=== PATIENT | female | born 1975 | race Caucasian/White ===

== ENCOUNTER → 2021-03-11 | Outpatient (CLI) | payer OTHER ==
--- NOTE | 2021-04-23 08:29 | PF ---
[place] [address] PULMONARY FUNCTION REPORT Name: THAI AGRAWAL Room: [facility].#: [id number] Admission: 03/11/21 Attend Phys: Shiv Sebastianrobertjuan Discharge: Date of : 75 Report #: [id number] THIS REPORT FOR: cc: Bonnie Hugo CIRCULATION ASSISTANT C Bonnie Hugo Adeel MD ~ DATE OF VISIT: 03/11/2021 PULMONARY FUNCTION TEST INTERPRETATION: The FEV1/FVC ratio is normal at 75% with an FVC normal at 82%. The FEV1 is mildly decreased to 77%. The FEF 25-75 is decreased to 65%. After the administration of a bronchodilator, there is no significant increase in any of these values. The patient's FEV1 is 2.46 liters, which does not increase after the administration of a bronchodilator. Only a spirometry was performed. IMPRESSION: There is mild reduction in FEV1 to 77%. The likely etiology is mild underlying obstruction without reversibility. Clinical correlation is advised. <ELECTRONICALLY SIGNED> By: Yung Quispe MD 04/23/21 0829 [id number] Quispe MD /nt
== END ==
LOC: M.PUL 13:00
PROVIDERS: ATTEND Chiropractor
DX: J45.909 Unspecified asthma, uncomplicated (principal)